=== PATIENT | male | born 1985 ===

== ENCOUNTER 2023-03-13 09:15 | Emergency (ER) | payer OTHER ==
[~2023-03-13] VITALS: Ht 162.6 cm; Wt 110.0 kg
[2023-03-13 09:23] VITALS: BP 138/93; TEMP 98.3
[2023-03-13 09:35] LABS: COVID AG,FIA SOURCE NASAL SWAB
[2023-03-13 09:44] LABS: SARS-COV2 (COVID) ANTIGEN,FIA Negative (Negative)
[2023-03-13 09:56] LABS: INFLUENZA TYPE A NEGATIVE FOR TYPE A (NEGATIVE); INFLUENZA TYPE B NEGATIVE FOR TYPE B (NEGATIVE)
[2023-03-13] MEDS ORDERED: IPRATROPIUM BROMIDE 0.5 MG/2.5 ML NEB SOLUTION NEB ONE (11:15)
[2023-03-13] MEDS ORDERED: ALBUTEROL SULFATE 2.5 MG/0.5 ML NEB SOLUTION NEB ONE (11:15)
[2023-03-13 11:42] VITALS: PULSE 85; RESP 16; O2SAT 100
[2023-03-13 11:44] VITALS: PULSE 85; RESP 16; O2SAT 100
[2023-03-13] MEDS ORDERED: ALBUTEROL SULFATE HFA 90 MCG/PUFF 8 GM INHALER IH ONE (11:45)
[2023-03-13] MEDS ORDERED: AMOX500C2 PO (12:31)
[2023-03-13] MEDS ORDERED: AZIT250T9 PO (13:18)
[2023-03-13 14:30] VITALS: PULSE 82; RESP 16; O2SAT 98
== END 2023-03-13 13:32 | disposition home or self-care (01) ==
LOC: EMS 09:16
DX: J32.9 Chronic sinusitis, unspecified (principal); Z20.822 Contact with and (suspected) exposure to COVID-19
CPT/HCPCS: 99284; 71045; 87426; 87804; 94640; J3535; J7613

== ENCOUNTER 2023-08-31 09:14 | Emergency (ER) | payer OTHER ==
[~2023-08-31] VITALS: Ht 162.6 cm; Wt 109.1 kg
[2023-08-31 09:20] VITALS: TEMP 98.1
[2023-08-31 09:30] VITALS: BP 140/97; PULSE 92; RESP 14
== END 2023-08-31 09:42 | disposition home or self-care (01) ==
LOC: EMS 09:14
DX: G56.03 Carpal tunnel syndrome, bilateral upper limbs (principal); Z88.0 Allergy status to penicillin
CPT/HCPCS: 99282; Z7502